=== PATIENT | female | born 1935 | race Caucasian/White ===

== ENCOUNTER 2017-07-01 11:15 | Observation (INO) ==
[2017-07-01] MEDS ORDERED: Acetaminophen 325 MG TABLET PO PRN (13:20)
[2017-07-01] MEDS ORDERED: Naloxone 0.4 MG/ML INJ IVP PRN (13:20)
--- NOTE | 2017-07-01 13:32 | Internal Med History&Physical ---
<Jenn Baldwin M - Last Filed: 07/01/17 13:48> Date of Encounter: 07/01/17 Time of Encounter: 13:24 Assessment and Plan (1) Chest pain Current visit: Yes Status: Acute Chest pain free now. She has significant family history of cardiac disease. EKG was negative for changes. CXR showed bi-basilar atelectasis. Troponin negative at < 0.03. BNP normal at 175. D-Dimer elevated at 796, but appropriate for her age. Will rule out ACS. Low suspicion for PE. Continuous telemetry monitor Q4hr VS Serial troponins Stress and echocardiogram in the morning NPO after midnight for stress, and hold AM dose of metoprolol for stress. Qualifiers: Chest pain type: precordial pain Qualified Code(s): R07.2 - Precordial pain (2) Hypertension Current visit: Yes Status: Acute Monitor VS Q4h Continue home doses of amlodipine, metoprolol. Hold AM metoprolol for stress test. Qualifiers: Hypertension type: essential hypertension Qualified Code(s): I10 - Essential (primary) hypertension (3) COPD (chronic obstructive pulmonary disease) Current visit: Yes Status: Chronic Not in exacerbation. Continue home doses of Maintain O2 saturation > 92%. Qualifiers: COPD type: chronic bronchitis Chronic bronchitis type: unspecified Qualified Code(s): J42 - Unspecified chronic bronchitis (4) CKD (chronic kidney disease) Current visit: Yes Status: Acute Patient's creatinine of 2.06 today was stable from previous baseline of 2.14. Check chemistry in the morning. Qualifiers: Chronic kidney disease stage: stage 3 (moderate) Qualified Code(s): N18.3 - Chronic kidney disease, stage 3 (moderate) (5) DVT prophylaxis Current visit: Yes Status: Acute Anti-embolic stockings Internal Medicine - H&P: HPI Chief complaint: Chest pain Admitted From: Hospital to Hospital Transfer Plans for Post Hospital Care: Home History of present illness: Ms. Henriquez is a 82 year old female with HTN, COPD, CKD and depression who presented to [facility] today with complaints of chest pain. She reports at 1030 last night she started having sharp pain on the left side of her chest radiating to her left shoulder and left back. It was constant and lasted for a few hours and went away on its own. This morning when she woke up she felt like her breathing was "off" (but denied shortness of breath) and that her balance was off as well. She denied dizziness, lightheadedness, palpitations, sweating, shortness of breath. She denied any nausea, vomiting, abdominal pain , fever, chills or sweats. She reports she was given aspirin and nitro by the squad. She was seen in [place] ED where she had a CXR which showed bibasilar atalectasis, EKG which showed sinus tachycardia and no changes from previous ekg. Troponin was negative at < 0.03. D-dimer was 796. BNP was 175. Chemistry was mostly normal with elevated BUN and creatinine consistent with her previous results and history of CKD. CBC was WNL. On my assessment, she was chest pain free. She was alert and oriented, in no apparent distress. Heart had regular rate and rhythm, with no murmurs, rubs or gallups. Lungs were clear bilaterally. Peripheral pulses were +2. No peripheral edema. Past Med Surg Social Fam HX - Past Medical History Medical history: COPD, hypertension, renal disease Psychiatric history: anxiety, depression - Past Surgical History Surgical History: no surgical history - Social History Smoking Status: Never smoker Smokeless Tobacco Status: No Alcohol use: none Drug use: none - Family History Maternal Hx Family Cardiac Disorders: Yes Paternal Hx Family Cardiac Disorders: Yes Brother Hx Family Cardiac Disorders: Yes Hx Family Cancer: Yes Sister Hx Family Cardiac Disorders: Yes Hx Family Cancer: Yes Mother Hx Family Cancer: Yes Father Hx Family Cardiac Disorders: Yes Internal Medicine - H&P: Meds Cyanocobalamin (Vitamin B-12) [Vitamin B-12] 250 mcg PO DAILY 06/06/16 [History] Ferrous Sulfate [Iron] 325 mg PO DAILY 06/06/16 [History] Folic Acid 1 mg PO DAILY 06/06/16 [History] LORazepam [Ativan] 0.5 mg PO Q6H PRN 06/06/16 [History] Metoprolol [Lopressor] 12.5 mg PO BID 06/06/16 [History] amLODIPine [Norvasc] 5 mg PO DAILY 06/06/16 [History] Ergocalciferol (VITAMIN D2) [Vitamin D2] 50,000 unit PO MO 07/01/17 [History] Furosemide [Lasix] 20 mg PO DAILY 07/01/17 [History] Ranitidine HCl [Acid Dishroom Attendant] 150 mg PO DAILY 07/01/17 [History] 3 Allergy/AdvReac Type Severity Reaction Status Date / Time Penicillins AdvReac See Verified 06/06/16 13:12 Comments All Systems PM: A 10-system review of systems was performed and is negative for pertinent findings except as documented above in the HPI. - Constitutional Constitutional: no chills, no fever(s), no night sweats - EENT Eyes: no change in vision, no discharge, no pain, no photophobia Ears: no ear discharge, no ear pain, no tinnitus Nose, mouth and throat: no dysphagia, no nasal discharge, no neck pain, no sore throat - Cardiovascular Cardiovascular ROS IM: chest pain, no diaphoresis, no dyspnea, no lightheadedness, no palpitations, no syncope - Respiratory Respiratory: no cough, no dyspnea, no wheezing, no excessive phlegm production - Gastrointestinal Gastrointestinal: no abdominal pain, no diarrhea, no hematemesis, no hematochezia, no melena, no nausea, no vomiting - Genitourinary Genitourinary: no change in urinary stream, no dysuria, no flank pain, no hematuria - Musculoskeletal Musculoskeletal ROS IM: no numbness, no tingling - Integumentary Integumentary IM: no rash, no unusual bruising - Hematologic/Lymphatic Hematologic/Lymphatic: no easy bruising - Constitutional Vitals: Temp Pulse Resp BP Pulse Ox 97.4 F L 91 17 116/75 94 07/01/17 13:01 07/01/17 13:01 07/01/17 13:01 07/01/17 13:01 07/01/17 13:01 General appearance: Present: A&O X 3 - Head Head exam: Present: atraumatic, normocephalic - Eye Eye exam: Present: PERRL, conjuntiva pink, sclera anicteric Pupils: Present: PERRL - Neck Neck exam general surgery: Present: supple, trachea midline. Absent: lymphadenopathy - Respiratory Respiratory exam: Present: CTAB. Absent: accessory muscle use, rales, rhonchi, wheezes - Cardiovascular Cardiovascular exam: Present: RRR, +S1, +S2. Absent: diastolic murmur, gallop, rubs, systolic murmur - GI/Abdominal GI/Abdominal exam: Present: normal bowel sounds, soft, no peritoneal signs. Absent: distended, tenderness - Extremities Exam Extremities exam: Present: warm, radial pulses palpable and symmetrical. Absent : calf tenderness, cyanotic, pedal edema - Neurological Exam Neurological exam: Present: CN II-XII intact, oriented X3, no focal deficits. Absent: facial droop, speech deficit - Skin Skin exam: Present: dry, intact Internal Med - H&P Results - Labs Labs: Labs from [facility]: NA 136 K 4.2 Cl 104 CO2 23 BUN 31 Cr 2.06 Glu 143 Hgb 11.8 HCt 36.4 WBC 8.9 Plt 160 Trop < 0.03 BNP 175 D-dimer 796 <Memo Rizo - Last Filed: 07/01/17 20:11> Date of Encounter: 07/01/17 Internal Medicine - H&P: HPI History of present illness: Ms. Henriquez is a 82 year old female All Systems PM: A 10-system review of systems was performed and is negative for pertinent findings except as documented above in the HPI. - Constitutional Vitals: Temp Pulse Resp BP Pulse Ox 98.4 F 65 14 122/74 95 07/01/17 18:38 07/01/17 18:38 07/01/17 18:38 07/01/17 18:38 07/01/17 18:38 Internal Med - H&P Results - Labs Labs: Cardiac Enzymes 07/01/17 Range/Units 16:13 Troponin I < 0.03 (< 0.04) ng/mL - Attending Attestation I have personally performed a face to face evaluation on this patient. I have reviewed and agree with the care plan. History and Exam by me shows: Patient presented to the hospital for evaluation of chest pain. Currently she is chest pain-free. On exam she is in no acute distress, awake alert oriented. Heart is regular. Lungs are clear. Troponin is negative. Plan: We will place patient in observation. Monitor on telemetry. Trend troponin. Obtain echocardiogram and stress test in the morning.
[2017-07-01] MEDS ORDERED: *HR* LORazepam 0.5 MG TABLET PO PRN (14:58)
[2017-07-02 06:58] LABS: Basophils # 0.1 K/mcL (0.0-0.2); Basophils % 0.9 %; Eosinophils # 0.1 K/mcL (0.0-0.6); Eosinophils % 2.3 %; Hematocrit 34.8 % (35.3-44.9); Immature Granulocytes % 0.4 % (0-4); Lymphocytes # 1.2 K/mcL (0.6-4.6); Lymphocytes % 20.8 %; Mean Corpuscular HGB Conc 31.6 g/dL (31.6-35.5); Mean Corpuscular Volume 94.8 fL (83.0-100.0); Mean Platelet Volume 11.5 fL (9.4-12.4); Monocytes # 0.7 K/mcL (0.0-1.3); Monocytes % 11.6 %; Neutrophils # 3.6 K/mcL (1.6-8.9); Platelet Count 139 K/mcL (140-400); Red Blood Count 3.67 M/mcL (3.82-4.97); Red Cell Distribution Width 13.6 % (11.5-14.5)
[2017-07-02 07:06] LABS: Calcium 8.9 mg/dL (8.6-10.3); Chol/HDL Ratio 3.6 (0-4.9); Potassium 4.1 mEq/L (3.5-5.1)
[2017-07-02] MEDS: amLODIPine 5 MG TABLET PO SCH (08:19)
[2017-07-02] MEDS: Furosemide 20 MG TABLET PO SCH (08:19)
[2017-07-02] MEDS ORDERED: Famotidine 20 MG TABLET PO SCH (09:00)
--- NOTE | 2017-07-02 15:23 | Internal Med Progress Note ---
Date of Encounter: 07/02/17 Time of Encounter: 11:10 - Assessment and plan (1) Chest pain Current Visit: Yes Status: Acute Assessment and plan: Patient presented to outside hospital with complaints of chest pain that began night before. Patient was having sharp chest pain in the left chest radiating to her left shoulder, it was constant and lasted for a few hours and resolved on its own. When patient awakened in the morning, she said she thought her breathing was off those unable to quantify that statement. She denied dizziness , chest pain, shortness of breath, palpitations, nausea, vomiting, diarrhea. She denied abdominal pain, chills, fever. Troponins are negative, d-dimer was mildly elevated but is normal for age. BNP was 175. Chest x-ray showed bibasilar atelectasis, EKG with sinus tach and no ST changes. Most comparable with prior EKG. Echo shows LVEF 55-60% with mild LVEDD, mildly dilated left atrium, aneurysmal interarterial septum, left significant valvular dysfunction. Patient will have stress test tomorrow. Continue telemetry Labs in a.m. Aspirin and nitroglycerin for pain. Qualifiers: Chest pain type: precordial pain Qualified Code(s): R07.2 - Precordial pain (2) CKD (chronic kidney disease) Current Visit: Yes Status: Acute Assessment and plan: 2.. With stage III chronic kidney disease. Labs reflect values normal baseline. Avoid nephrotoxins Monitor labs. Qualifiers: Chronic kidney disease stage: stage 3 (moderate) Qualified Code(s): N18.3 - Chronic kidney disease, stage 3 (moderate) (3) DVT prophylaxis Current Visit: Yes Status: Acute Assessment and plan: Lovenox subcutaneous. Patient up to chair twice daily. (4) Hypertension Current Visit: Yes Status: Acute Assessment and plan: Chronic. Continue home medications. Monitor per admission orders. Qualifiers: Hypertension type: essential hypertension Qualified Code(s): I10 - Essential (primary) hypertension (5) COPD (chronic obstructive pulmonary disease) Current Visit: Yes Status: Chronic Assessment and plan: No acute exacerbation. Patient on room air and is maintaining sats above 92%. Continue home medications. Lungs are clear diminished throughout. Qualifiers: COPD type: chronic bronchitis Chronic bronchitis type: unspecified Qualified Code(s): J42 - Unspecified chronic bronchitis - Time Spent With Patient less than 15 minutes - Subjective Interval history: Patient was seen and assessed at bedside 11:10 AM. Patient is alert, oriented, very pleasant. She denies chest pain. She denies headache, blurred vision, nausea, vomiting, abdominal pain. She denies any peripheral edema or new cough. She is aware stress test tomorrow in aware of potential outcomes. - Constitutional Vitals: Temp Pulse Resp BP Pulse Ox 97.9 F 75 17 108/67 93 07/02/17 11:29 07/02/17 11:29 07/02/17 11:29 07/02/17 11:29 07/02/17 11:29 General appearance: Present: cooperative, A&O X 3, pleasant, no acute distress, answers questions appropriately - Head Head exam: Present: atraumatic, normal inspection, normocephalic - Eye Eye exam: Present: normal appearance, conjuntiva pink, sclera anicteric - Neck Neck exam general surgery: Present: supple, trachea midline. Absent: lymphadenopathy - Respiratory Respiratory exam: Present: chest wall tenderness, CTAB. Absent: accessory muscle use, decreased breath sounds, rales, respiratory distress, rhonchi, wheezes - Cardiovascular Cardiovascular exam: Present: RRR, +S1, +S2. Absent: bradycardia, diastolic murmur, gallop, rubs, systolic murmur, tachycardia - GI/Abdominal GI/Abdominal exam: Present: normal bowel sounds, soft. Absent: distended, hernia, tenderness - Extremities Exam Extremities exam: Present: normal inspection, warm, radial pulses palpable and symmetrical. Absent: calf tenderness, cyanotic, pedal edema, tenderness - Neurological Exam Neurological exam: Present: alert, oriented X3, no focal deficits. Absent: facial droop, speech deficit - Skin Skin exam: Present: dry, intact, normal color, warm. Absent: rash Internal Medicine: Result - Labs CBC & Chem 7: 07/02/17 04:42 07/02/17 04:42 Labs: Short CBC 07/02/17 Range/Units 04:42 WBC 5.7 (4.3-11.1) K/mcL Hgb 11.0 L (11.5-15.4) g/dL Hct 34.8 L (35.3-44.9) % Plt Count 139 L (140-400) K/mcL Neutrophils # 3.6 (1.6-8.9) K/mcL BMP 07/02/17 04:42 Sodium 139 Potassium 4.1 Chloride 108 H Carbon Dioxide 23 BUN 33 H Creatinine 2.18 H Glucose 105 Calcium 8.9 Cardiac Enzymes 07/01/17 07/01/17 07/02/17 Range/Units 16:13 22:47 04:42 Troponin I < 0.03 < 0.03 < 0.03 (< 0.04) ng/mL - Impressions Impressions Echocardiogram 07/02/17 13:23 Impressions: LVEF 55-60%. Mild left ventricular diastolic dysfunction. Normal right ventricular structure and function. Mildly dilated left atrium. Aneurysmal interatrial septal. Mild pulmonary hypertension. No significant valvular dysfunction. Left Ventricular Wall Motion: Rest Echo Findings All wall segments showed normal motion. Findings: Study Quality * Technically adequate exam. ECG Findings * Normal sinus rhythm. Left Ventricle * LVEF 55-60%. * Mild left ventricular diastolic dysfunction. Right Ventricle * Normal right ventricular structure and function. Left Atrium * Mildly dilated left atrium. Right Atrium * Normal right atrial size. Interatrial Septum * Aneurysmal interatrial septal. Aortic Valve * Trileaflet aortic valve. * Mild aortic regurgitation. Mitral Valve * Mild mitral regurgitation. Tricuspid Valve * Mild-moderate tricuspid regurgitation. * Estimated RVSP is 36 mmHg. * Estimated RA pressure is 5 mmHg. * Mild pulmonary hypertension. Pulmonic Valve * Mild pulmonic regurgitation. Aorta * Normally sized aortic root. Pericardium * The pericardium appears normal. IVC * The IVC is not well evaluated. - VTE Documentation of Mechanical Device: Graduated compression elastic hosiery Consult Discharge Plan - Plan Referrals: Feroz Bartholomew, POLYMER SPECIALIST [Primary Care Provider] -
[2017-07-03] MEDS ORDERED: Regadenoson 0.4 MG/5 ML SYRINGE IVP ONE (06:17)
[2017-07-03] MEDS ORDERED: *HR* Enoxaparin 30 MG/0.3 ML SYRINGE SQ SCH (07:00)
[2017-07-03 07:21] VITALS: BP 108/61
[2017-07-03] MEDS ORDERED: Famotidine 20 MG TABLET PO SCH (09:00)
[2017-07-03] MEDS: amLODIPine 5 MG TABLET PO SCH (09:14)
[2017-07-03] MEDS: Furosemide 20 MG TABLET PO SCH (09:14)
--- NOTE | 2017-07-03 11:31 | Discharge Summary ---
- NOTES TO OUTPATIENT PROVIDER Notes to Outpatient Provider: Patient was admitted for chest pain, decided against having stress test. She has never had an ischemic workup. Her echocardiogram shows preserved EF with mild LV DD, mildly dilated left atrium, aneurysmal intra-arterial septum and significant valvular dysfunction. Recommended patient follows up with cardiology outpatient, patient states that she did not want to have any testing done and that no matter what they find, at age 82 she will do nothing about it. She did deny chest pain on discharge, troponins and EKG were within normal limits. Orders not resulted at time of discharge: Pending orders 07/01/17 13:23 NM chente perf SPECT single [NM] Routine 07/02/17 06:00 ECG 12 lead ECG [ECG] AM 0600 Date of Encounter: 07/03/17 Time of Encounter: 09:15 - Discharge Diagnosis (1) Chest pain Priority: Primary Status: Acute Comments: Patient presented to outside hospital with complaints of chest pain that began night before. Patient was having sharp chest pain in the left chest radiating to her left shoulder, it was constant and lasted for a few hours and resolved on its own. When patient awakened in the morning, she said she thought her breathing was off those unable to quantify that statement. She denied dizziness , chest pain, shortness of breath, palpitations, nausea, vomiting, diarrhea. She denied abdominal pain, chills, fever. Troponins are negative, d-dimer was mildly elevated but is normal for age. BNP was 175. Chest x-ray showed bibasilar atelectasis, EKG with sinus tach and no ST changes. Most comparable with prior EKG. Echo shows LVEF 55-60% with mild LVEDD, mildly dilated left atrium, aneurysmal interarterial septum, left significant valvular dysfunction. Patient declined stress test this morning. She states, "I chickened out." She states that she is 82 years old and wants to live how she wants to live, she states that she would do nothing about it if her stress test was positive. I did encourage her to continue testing, she still declined. Patient is alert, oriented, of sound mind and able to make her decisions. I did recommend she follow up with her primary care provider for continued evaluation that she return to the emergency department if she has any other problems or concerns. Qualifiers: Chest pain type: precordial pain Qualified Code(s): R07.2 - Precordial pain (2) CKD (chronic kidney disease) Priority: Secondary Status: Chronic Comments: Patient with stage III C KD. Labs were reflective of her normal baseline. Avoid nephrotoxins and follow with nephrology. Patient sees Dr. Botello. Qualifiers: Chronic kidney disease stage: stage 3 (moderate) Qualified Code(s): N18.3 - Chronic kidney disease, stage 3 (moderate) (3) DVT prophylaxis Priority: Secondary Status: Acute Comments: Lovenox subcutaneous. Patient is ambulatory and moves well for her age. (4) Hypertension Priority: Secondary Status: Chronic Comments: Chronic. Continue home medications. Qualifiers: Hypertension type: essential hypertension Qualified Code(s): I10 - Essential (primary) hypertension (5) COPD (chronic obstructive pulmonary disease) Priority: Secondary Status: Chronic Comments: Patient in no acute exacerbation. She is on room air and is maintaining her sats. She is in no distress. Lungs are clear diminished throughout, no wheezing, no rails, no rhonchi. Continue home medications. Qualifiers: COPD type: chronic bronchitis Chronic bronchitis type: unspecified Qualified Code(s): J42 - Unspecified chronic bronchitis Hospital course: Ms. Henriquez is a 82 year old female who presented to the emergency department with chest pain. He has multiple chronic conditions such as stage III kidney disease, hypertension, COPD hyperlipidemia. Patient appeared to be anxious about testing, her brother talked her into staying. Echocardiogram was completed and it revealed preserved ejection fraction with mild LV DD, mildly dilated left atrium, aneurysmal intra-arterial septum, no significant valvular dysfunction. Patient was to have stress test this morning, she refused to have testing and stated that even if her stress was positive, she would do nothing about it. Patient is alert, oriented, able to make decisions for herself and has decided not to pursue any further testing. Her troponin was negative, EKG was negative. I recommend close follow-up with primary care for assessment of aneurysmal septum. Patient agrees and has a follow-up appointment in 8 days. She denies any chest pain and is stable and appropriate for discharge. Discharge discussed with: patient, nurse - Time Spent with Patient Total time spent providing and/or coordinating discharge services: Less than 30 minutes - Discharge Medications Home Medications: Cyanocobalamin (Vitamin B-12) [Vitamin B-12] 250 mcg PO DAILY 06/06/16 [History] Ferrous Sulfate [Iron] 325 mg PO DAILY 06/06/16 [History] Folic Acid 1 mg PO DAILY 06/06/16 [History] LORazepam [Ativan] 0.5 mg PO Q6H PRN 06/06/16 [History] Metoprolol [Lopressor] 12.5 mg PO BID 06/06/16 [History] amLODIPine [Norvasc] 5 mg PO DAILY 06/06/16 [History] Ergocalciferol (VITAMIN D2) [Vitamin D2] 50,000 unit PO MO 07/01/17 [History] Furosemide [Lasix] 20 mg PO DAILY 07/01/17 [History] Ranitidine HCl [Acid Sales Representative Advertising] 150 mg PO DAILY 07/01/17 [History] Allergies/Adverse Reactions: 3 Allergy/AdvReac Type Severity Reaction Status Date / Time Penicillins AdvReac See Verified 06/06/16 13:12 Comments Date of admission: 07/01/17 12:50 Primary care physician: Feroz Bartholomew CNP Discharging clinician: Maria Guadalupe Riley Anticipated date of discharge: 07/03/17 - Constitutional Vitals: Temp Pulse Resp BP Pulse Ox 99.1 F 79 18 108/61 96 07/03/17 07:20 07/03/17 07:20 07/03/17 07:20 07/03/17 07:20 07/03/17 07:20 General appearance: Present: cooperative, A&O X 3, pleasant, no acute distress, answers questions appropriately - Head Head exam: Present: atraumatic, normal inspection, normocephalic - Eye Eye exam: Present: normal appearance, conjuntiva pink, sclera anicteric - Neck Neck exam general surgery: Present: normal inspection, supple, trachea midline. Absent: lymphadenopathy, tenderness - Respiratory Respiratory exam: Present: decreased breath sounds, CTAB. Absent: accessory muscle use, chest wall tenderness, rales, respiratory distress, rhonchi, wheezes - Cardiovascular Cardiovascular exam: Present: RRR, +S1, +S2. Absent: diastolic murmur, gallop, rubs, systolic murmur - GI/Abdominal GI/Abdominal exam: Present: normal bowel sounds, soft. Absent: distended, hepatomegaly, tenderness - Extremities Exam Extremities exam: Present: normal capillary refill, normal inspection, warm, radial pulses palpable and symmetrical. Absent: calf tenderness, cyanotic, pedal edema, tenderness - Neurological Exam Neurological exam: Present: alert, oriented X3, no focal deficits. Absent: facial droop, speech deficit - Skin Skin exam: Present: dry, intact, normal color, warm. Absent: rash - Patient Status Disposition: Home, Self-Care Condition: Good Functional capacity at discharge: independent ambulation Overall status at discharge: patient is back to baseline - Discharge Instructions Follow Up With: Feroz Bartholomew CNP [Primary Care Provider] - 07/11/17 11:20 am Additional Instructions: Please follow up with your primary care physician as soon as possible. I still recommend ischemic workup, please discuss with Dr. Bartholomew. Return to the emergency department as needed for any other problems or concerns , or if your symptoms return or worsen. Take your medications as directed, return to your normal activities and diet as tolerated. - Diet and Activity Activity: increase activity as tolerated Diet: advance to your usual diet - VTE Documentation of Mechanical Device: Graduated compression elastic hosiery
== END 2017-07-03 12:06 | disposition home or self-care (01) ==
LOC: 3BNU
PROVIDERS: ADMIT Internal Medicine; ATTEND Internal Medicine